=== PATIENT | female | born 1975 | race Caucasian/White ===

== ENCOUNTER 2017-01-02 12:31 | Emergency (ER) | payer MEDICAID ==
[2017-01-02 12:39] VITALS: BP 130/89
[2017-01-02] MEDS ORDERED: CLINDAMYCIN PHOSPHATE 600 MG in DEXTROSE 5 % IN WATER 100 ML IM ONE ×2 (12:46)
[2017-01-02] MEDS ORDERED: KETOROLAC TROMETHAMINE 60 MG/2 ML VIAL IM ONE (12:58)
--- NOTE | 2017-01-02 13:05 | ERNOTE ---
[facility] Date of Service: 01/02/17 Presenting Symptoms: dental pain Time Seen by Provider: 01/02/17 12:41 Source: patient Exam Limitations: no limitations - Immun/Allergies/Home Medications Immunizations: IMMUNIZATION HX Immunizations Up to Date Yes History of Influenza Vaccine No Hx Pneumococcal Vaccination No Allergies/Adverse Reactions: Allergies Allergy/AdvReac Type Severity Reaction Status Date / Time No Known Allergies Allergy Unverified 01/02/17 12:39 Home Medications: HOME MEDICATIONS Clindamycin HCl [Cleocin HCl] 300 mg PO Q6H #40 capsule 01/02/17 [Last Taken Unknown] Escitalopram Oxalate [Lexapro] 20 mg PO DAILY 01/02/17 [Last Taken Unknown] oxyCODONE HCL/ACETAMINOPHEN [Percocet 5 MG/325 MG] 1 tab PO Q4H PRN #20 tab [Last Taken Unknown] - History of Present Illness Narrative: Pt. comes in with c/o L mandible pain and swelling for two days. Pt. states that she has cavities, does not have a regular dentist and has not been able to eat since onset of pain. Pt. denies any SOB, CP, NVD, Fever, or dizziness. Pt. states taht she has taken Ibuprofen without relief. Review of Systems - Review of Systems Constitutional: Present: no symptoms reported. Absent: recent illness, fever, chills, weakness, fatigue, malaise EYE: Present: no symptoms reported ENT: Present: other - L mandibular dental pain and swelling Respiratory: Present: no symptoms reported. Absent: shortness of breath Cardiology: Present: no symptoms reported. Absent: chest pain, palpitations, edema Gastrointestinal/Abdominal: Present: no symptoms reported. Absent: nausea, vomiting, diarrhea Genitourinary: Present: no symptoms reported Musculoskeletal: Present: no symptoms reported. Absent: back pain, joint pain Skin: Present: no symptoms reported Neurological: Present: no symptoms reported. Absent: headache, dizziness/light- headedness, numbness, tingling All Other Systems: All systems neg except as marked - Patient's Past Medical History Patient History - Medical: No pertinent hx Patient History - Cardiac/Respiratory: No pertinent hx Patient History - Cancer: No Hx of Cancer Patient History - Surgical Procedures: Tubal Ligation Patient History - Other: None LMP (females 10-50): 3 weeks - Social History Living Situations: home Psych History: Hx of Depression Smoking Status: Current every day smoker - Immunizations Immunizations Up to Date: Yes Hx Pneumococcal Vaccination: No History of Influenza Vaccine: No Physical Exam - Physical Exam General Appearance: Present: wd/wn, alert, no apparent distress Eye Exam: Normal inspection: bilateral, PERRL: bilateral, EOMI: bilateral Ears, Nose, Throat: Present: normal except -, other - L mandibilar molar with abcess below tooth and large amount of fluid no fluctuance Respiratory: Present: no respiratory distress, normal breath sounds, no accessory muscle use, chest nontender, lungs clear Cardiovascular/Chest: Present: regular rate, rhythm, no murmur, normal peripheral pulses Gastrointestinal/Abdominal: Present: normal bowel sounds, nontender Back Exam: Present: normal inspection Extremity Exam: Present: normal inspection Neurological Exam: Present: alert, oriented, normal mood/affect, no motor/ sensory deficits Skin Exam: Present: normal color, warm/dry ED Progress - Vital Signs Patient's Vital Signs:: I have reviewed the patient's vital signs. Vital Signs: Vital Signs 01/02/17 12:36 Temperature 36.8 C Pulse Rate 100 Respiratory 16 Rate Blood Pressure 130/89 O2 Sat by Pulse 100 Oximetry - Progress/Reassessment Chief Complaint: Dental Problem Departure Clinical Impression: Dental abscess - Departure Disposition: Home self-care Condition: Good Instructions: Dental Abscess, [id number] Additional Instructions: Please follow up with dental provider in 2-3 days. Prescriptions: Clindamycin HCl [Cleocin HCl] 300 mg PO Q6H #40 capsule oxyCODONE HCL/ACETAMINOPHEN [Percocet 5 MG/325 MG] 1 tab PO Q4H PRN #20 tab PRN Reason: Pain
[2017-01-02] MEDS: LIDOCAINE HCL 20 ML UDC MM ONE (13:21)
[2017-01-02] MEDS: KETOROLAC TROMETHAMINE 60 MG/2 ML VIAL IM ONE (13:21)
[2017-01-02] MEDS: CLINDAMYCIN PHOSPHATE 150 MG/ML VIAL IM ONE (13:22)
== END 2017-01-02 13:27 | disposition home or self-care (01) ==
LOC: ER 12:31
DX: K04.7 Periapical abscess without sinus (principal); F17.210 Nicotine dependence, cigarettes, uncomplicated

== ENCOUNTER 2017-02-12 18:53 | Emergency (ER) | payer MEDICAID ==
[2017-02-12] MEDS ORDERED: KETOROLAC TROMETHAMINE 60 MG/2 ML VIAL IM ONE ×2 (19:09→19:18)
--- NOTE | 2017-02-12 19:14 | ERNOTE ---
Medical Problem HPI - Narrative Date of Service: 02/12/17 - General Chief Complaint: General Assessment Time Seen by Provider: 02/12/17 19:05 Source: patient Exam Limitations: no limitations - Immun/Allergies/Home Medications Immunizations: IMMUNIZATION HX Immunizations Up to Date Yes History of Influenza Vaccine No Hx Pneumococcal Vaccination No Allergies/Adverse Reactions: Allergies No Known Allergies Allergy (Verified 02/12/17 19:00) Home Medications: HOME MEDICATIONS Escitalopram Oxalate [Lexapro] 20 mg PO DAILY 01/02/17 [Last Taken Unknown] - History of Present History Narrative: Pt. comes in with c/o Suprapubic and RLQ pain with heavy vagingal bleeding for two days. Pt. states that her bleeding has slowed to spotting but she was passing quarter sized clots yesterday and has had 3 periods in the past four weeks. Pt. denies any dizziness, SOB, CP, NVD, alleviating factors, aggravating factors or prehospital treatment. Review of Systems - Review of Systems Constitutional: Present: no symptoms reported. Absent: recent illness, fever, chills, weakness, fatigue, malaise EYE: Present: no symptoms reported ENT: Present: no symptoms reported Respiratory: Present: no symptoms reported. Absent: shortness of breath, cough , wheezing Cardiology: Present: no symptoms reported. Absent: chest pain, palpitations, edema Gastrointestinal/Abdominal: Present: abdominal pain - RLQ suprapubic. Absent: nausea, vomiting, diarrhea Genitourinary: Present: pain - R adnexal, discharge - blood. Absent: frequency , dysuria, decreased urinary output Musculoskeletal: Present: no symptoms reported. Absent: back pain, joint pain Skin: Present: no symptoms reported. Absent: rash, change in color Neurological: Present: no symptoms reported. Absent: headache, dizziness/light- headedness, numbness, tingling All Other Systems: All systems neg except as marked - Patient's Past Medical History Patient History - Medical: Depression Patient History - Cardiac/Respiratory: No pertinent hx Patient History - Cancer: No Hx of Cancer Patient History - Surgical Procedures: Tubal Ligation Patient History - Other: None LMP (females 10-50): now - Social History Living Situations: home Psych History: Hx of Depression - Immunizations Immunizations Up to Date: Yes Hx Pneumococcal Vaccination: No History of Influenza Vaccine: No Physical Exam - Physical Exam General Appearance: Present: wd/wn, alert, no apparent distress Eye Exam: Normal inspection: bilateral, PERRL: bilateral, EOMI: bilateral Ears, Nose, Throat: Present: normal ENT inspection, normal pharynx Neck: Present: normal inspection, nontender. Absent: lymphadenopathy (R), lymphadenopathy (L) Respiratory: Present: no respiratory distress, normal breath sounds, no accessory muscle use, chest nontender, lungs clear Cardiovascular/Chest: Present: regular rate, rhythm, no murmur, normal peripheral pulses Gastrointestinal/Abdominal: Present: normal bowel sounds, nontender, nondistended, soft, no organomegaly Back Exam: Present: normal inspection, normal range of motion, no CVA tenderness , no vertebral tenderness Extremity Exam: Present: normal inspection Neurological Exam: Present: alert, oriented, normal mood/affect, no motor/ sensory deficits Skin Exam: Present: normal color, warm/dry. Absent: pallor, skin rash Lymphatic Exam: Present: no adenopathy Pelvic Exam: Present: active bleeding - spotting, tender adnexa - R, tender uterus. Absent: cervical motion tendernes ED Progress - Results and Orders Patient's Lab Results:: I have reviewed the patient's lab results. - Vital Signs Patient's Vital Signs:: I have reviewed the patient's vital signs. Vital Signs: Vital Signs 02/12/17 18:57 Temperature 36.6 C Pulse Rate 85 Respiratory 16 Rate Blood Pressure 128/73 O2 Sat by Pulse 100 Oximetry - CT/Ultrasound CT/Ultrasound Narrative: US with R hemorrhagic cyst vs fluid nodule - Progress/Reassessment Chief Complaint: General Assessment Departure - Departure Clinical Impression: Ovarian cyst Qualifiers: Laterality: right Qualified Code(s): N83.201 - Unspecified ovarian cyst, right side Disposition: Home self-care Condition: Good Instructions: Ovarian Cyst, [id number] Additional Instructions: Please follow up with director clinical operations in 2-3 days to discuss follow up ultrasound. May take up to 800mg Ibuprofen every 8 hours as needed for pain.
[2017-02-12 19:21] LABS: Hematocrit 41.6 % (37.0-47.0); Hemoglobin 13.9 gm/dL (12.5-16.0); Mean Cell Volume 91.8 fl (78-100); Mean Corpuscular Hemoglobin 30.7 pg (27-31); Mean Corpuscular Hgb Conc 33.4 g/dl (32-36); Neutrophil # 3.6 K/mm3 (1.3-6.0); Neutrophil % 53.1 % (42-75.0); Platelet Count 286 K/mm3 (150-450); Red Blood Count 4.53 M/mm3 (4.2-5.4); Red Cell Distribution Width 12.5 % (11.5-14.0); White Blood Count 6.8 K/mm3 (4.0-10.5)
[2017-02-12 19:25] LABS: Urine Bilirubin 1 mg/dl (NEGATIVE); Urine Blood Negative /ul (NEGATIVE); Urine Ketone 15 mg/dL (NEGATIVE); Urine Nitrite Negative (NEGATIVE); Urine Protein Negative (NEGATIVE); Urine Specific Gravity 1.025 SP.GR. (1.005-1.010); Urine Urobilinogen Normal (NORMAL)
[2017-02-12 19:34] LABS: Albumin * 3.9 gm/dl (3.4-5.0); Anion Gap 13.9 mmol/L (6.8-13.8); BUN/Creatinine Ratio 8.1 (9.0-21.6); Bilirubin, Total 0.6 mg/dL (0.0-1.1); Ca. Corrected For Albumin 8.7 mg/dL (8.4-10.2); Calcium * 8.9 mg/dL (7.9-10.9); Carbon Dioxide 25.7 mmol/L (24-32.6); Potassium 3.6 mmol/L (3.4-4.6); Total Protein 8.2 gm/dL (6.2-8.2)
[2017-02-12 19:41] LABS: Urine Appearance Clear; Urine Bacteria None Seen; Urine Color Yellow; Urine RBC None Seen /hpf (0-5); Urine WBC None Seen /hpf (0-5)
[2017-02-12 20:07] VITALS: BP 125/77
== END 2017-02-12 20:25 | disposition home or self-care (01) ==
LOC: ER 18:53
DX: N83.201 Unspecified ovarian cyst, right side (principal)

== ENCOUNTER 2017-02-16 16:20 | Emergency (ER) | payer MEDICAID ==
--- NOTE | 2017-02-16 16:37 | ERNOTE ---
Abdominal HPI - Narrative Date of Service: 02/16/17 - General Chief Complaint: Abdominal Pain Time Seen by Provider: 02/16/17 16:29 Source: patient Exam Limitations: no limitations - Immun/Allergies/Home Medications Immunizatons: IMMUNIZATION HX Immunizations Up to Date Yes History of Influenza Vaccine No Hx Pneumococcal Vaccination No Allergies/Adverse Reactions: Allergies No Known Allergies Allergy (Verified 02/16/17 16:27) Home Medications: HOME MEDICATIONS Escitalopram Oxalate [Lexapro] 20 mg PO DAILY 01/02/17 [Last Taken Unknown] HYDROcodone/ACETAMINOPHEN [Hydrocodon-Acetaminophen 5-325] 1 each PO TID PRN # 20 tablet 02/16/17 [Last Taken Unknown] - History of Present Illness Narrative: patient states she has a history of ovarian cyst. States she has had pain since yesterday, she is taking motrin OTC and today the pain is very bad Date (Duration): 02/16/17 Timing: constant Quality: mild Activities at Onset: none Modifying Factors - (Improves): Present: analgesics Modifying Factors - (Worsens): Present: movement Associated Symptoms: Present: back pain Prior Abdominal Problems: Present: none Review of Systems - Review of Systems Constitutional: Present: no symptoms reported EYE: Present: no symptoms reported ENT: Present: no symptoms reported Respiratory: Present: no symptoms reported Cardiology: Present: no symptoms reported Gastrointestinal/Abdominal: Present: no symptoms reported Genitourinary: Present: no symptoms reported Musculoskeletal: Present: See HPI, back pain Skin: Present: no symptoms reported Neurological: Present: no symptoms reported Endocrine: Present: no symptoms reported Hematologic/Lymphatic: Present: no symptoms reported Psych: Present: no symptoms reported - Patient's Past Medical History Patient History - Medical: Depression Patient History - Cardiac/Respiratory: No pertinent hx Patient History - Cancer: No Hx of Cancer Patient History - Surgical Procedures: Tubal Ligation Patient History - Other: None - Social History Living Situations: home Psych History: Hx of Depression - Immunizations Immunizations Up to Date: Yes Hx Pneumococcal Vaccination: No History of Influenza Vaccine: No Physical Exam - Physical Exam General Appearance: Present: wd/wn, alert, no apparent distress Ears, Nose, Throat: Present: normal ENT inspection Neck: Present: normal inspection, nontender Respiratory: Present: no respiratory distress, normal breath sounds, no accessory muscle use, lungs clear Cardiovascular/Chest: Present: regular rate, rhythm, no murmur, normal peripheral pulses Gastrointestinal/Abdominal: Present: normal bowel sounds, soft, tenderness, guarding Back Exam: Present: normal inspection, normal range of motion, no vertebral tenderness Extremity Exam: Present: normal inspection, no edema Neurological Exam: Present: alert, oriented, normal mood/affect, no motor/ sensory deficits Skin Exam: Present: normal color, warm/dry Lymphatic Exam: Present: no adenopathy ED Progress - Vital Signs Vital Signs: Vital Signs 02/16/17 16:24 Temperature 36.6 C Pulse Rate 93 Respiratory 12 Rate Blood Pressure 145/88 O2 Sat by Pulse 100 Oximetry - CT/Ultrasound CT/Ultrasound Narrative: Uterus: The uterus measures 9.0 x 5.0 x 4.5 cm. The myometrium demonstrates mild heterogenicity without a definable fibroid. The total endometrial thickness corresponds to 8.0 mm, which would be within normal limits. Right ovary: The right ovary measures 3.4 x 2.1 x 2.8 cm. There is a 1.5 x 1.2 x 1.3 cm complex structure within the right ovary, which has mildly progressed in size when compared to prior study. This is developing a hypoechoic center. This most likely reflects a hemorrhagic follicle. Additional simple follicles are identified within the right ovary. Vascular flow is identified within the right ovary using color-flow and Doppler technique. Left ovary: The left ovary measures 2.3 x 1.8 x 2.0 cm. The ultrasound appearance of the left ovary is within normal limits. Vascular flow is identified within the left ovary using color-flow and Doppler technique. There is insignificant free fluid in the cul-de-sac, which is most likely physiologic. IMPRESSION: 1. UNREMARKABLE ULTRASOUND OF THE UTERUS AND LEFT OVARY. 2. PROBABLE 1.5 CM HEMORRHAGIC FOLLICLE WITHIN THE RIGHT OVARY; FOLLOW-UP PELVIC ULTRASOUND SIX WEEKS IS RECOMMENDED TO EVALUATE FOR RESOLUTION. Electronically signed by Richard Cr M.D.. - Progress/Reassessment Chief Complaint: Abdominal Pain Progress:: Improved Plan - Plan Plan: patient offered CT scan but refused. States she will follow up with her OBGYN in the Am Departure - Departure Clinical Impression: Ovarian cyst Qualifiers: Laterality: right Qualified Code(s): N83.201 - Unspecified ovarian cyst, right side Disposition: Home Follow Up Needed Condition: Stable Instructions: Ovarian Cyst, [id number], Form - Excuse from Work, School, or Physical Activity Additional Instructions: Continue any previous home medications directed may take [id number] pain medications were prescribed medications for pain. Follow-up with the [employer] SAL[employer] REPRESENTATIVE Friday. Return to the emergency room if pain persists and you unable to control her pain with medications. Prescriptions: HYDROcodone/ACETAMINOPHEN [Hydrocodon-Acetaminophen 5-325] 1 each PO TID PRN # 20 tablet PRN Reason: Pain
[2017-02-16 16:51] LABS: Hematocrit 40.6 % (37.0-47.0); Hemoglobin 13.5 gm/dL (12.5-16.0); Mean Cell Volume 92.5 fl (78-100); Mean Corpuscular Hemoglobin 30.8 pg (27-31); Mean Corpuscular Hgb Conc 33.3 g/dl (32-36); Mean Platelet Volume 9.2 fl (6.0-9.5); Neutrophil # 4.6 K/mm3 (1.3-6.0); Platelet Count 281 K/mm3 (150-450); Red Blood Count 4.39 M/mm3 (4.2-5.4); Red Cell Distribution Width 12.5 % (11.5-14.0); White Blood Count 7.3 K/mm3 (4.0-10.5)
[2017-02-16 17:40] LABS: Urine Appearance Slightly Cloudy; Urine Bilirubin Negative (NEGATIVE); Urine Blood Negative /ul (NEGATIVE); Urine Color Yellow; Urine Ketone Negative (NEGATIVE); Urine Protein 15 mg/dL (NEGATIVE); Urine Specific Gravity 1.025 SP.GR. (1.005-1.010); Urine Urobilinogen Normal (NORMAL); Urine pH 6.5 pH (5.0-7.0)
[2017-02-16 17:41] LABS: Urine Bacteria 1+; Urine Nitrite Negative (NEGATIVE); Urine RBC None Seen /hpf (0-5); Urine WBC 0-5 /hpf (0-5)
[2017-02-16] MEDS ORDERED: ACETAMINOPHEN 500 MG TABLET PO ONE (18:48)
[2017-02-16 20:53] VITALS: BP 139/84
== END 2017-02-16 19:45 | disposition home or self-care (01) ==
LOC: ER 16:20
DX: N83.201 Unspecified ovarian cyst, right side (principal); F32.89 Other specified depressive episodes